=== PATIENT | male | born 2005 | race Caucasian/White ===

== ENCOUNTER 2024-04-12 22:21 | Emergency (ER) | payer OTHER ==
[2024-04-12 22:31] VITALS: TEMP 99.5
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
[2024-04-12] MEDS: HYDROcodone/APAP 7.5-325MG 1 EACH TAB PO ONE (23:32)
[2024-04-12 23:37] VITALS: RESP 19
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
[2024-04-13] MEDS: CYCLOBENZAPRINE 10MG STARTER 3 TAB BTL PO STA (00:33)
[2024-04-13 00:47] VITALS: BP 138/78; PULSE 98
== END 2024-04-13 00:38 | disposition home or self-care (01) ==
LOC: EC 22:21
DX: S01.01XA Laceration without foreign body of scalp, initial encounter (principal); M54.2 Cervicalgia; Z88.0 Allergy status to penicillin; V49.40XA Driver injured in collision with unspecified motor vehicles in traffic accident, initial encounter; Y92.410 Unspecified street and highway as the place of occurrence of the external cause
CPT/HCPCS: 12002; 70450; 72125; 99284